=== PATIENT | male | born 1990 | race African-American/Black ===

== ENCOUNTER 2016-11-30 17:34 | Emergency (ER) | payer OTHER ==
[2016-11-30] MEDS ORDERED: IBUPROFEN 800 MG TABLET PO ONE (18:58)
[2016-11-30] MEDS ORDERED: CYCLOBENZAPRINE HCL 10 MG TABLET PO ONE (18:58)
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
[2016-11-30 19:44] VITALS: BP 118/75
== END 2016-11-30 19:20 | disposition home or self-care (01) ==
LOC: ER 17:34
DX: S16.1XXA Strain of muscle, fascia and tendon at neck level, initial encounter (principal); S46.912A Strain of unspecified muscle, fascia and tendon at shoulder and upper arm level, left arm, initial encounter; M54.2 Cervicalgia; M25.512 Pain in left shoulder; V43.62XA Car passenger injured in collision with other type car in traffic accident, initial encounter; Z87.81 Personal history of (healed) traumatic fracture
CPT/HCPCS: 99283